=== PATIENT | female | born 1955 | race Caucasian/White ===

== ENCOUNTER → 2017-02-21 | Outpatient (CLI) | payer MEDICARE, OTHER | END | disposition home or self-care (01) | LOC: LABWHC1 10:42 | PROVIDERS: ATTEND Psychiatry & Neurology Neurology | DX: G40.109 Localization-related (focal) (partial) symptomatic epilepsy and epileptic syndromes with simple partial seizures, not intractable, without status epilepticus (principal) | CPT/HCPCS: 36415; 80201 ==

== ENCOUNTER → 2023-01-21 | Outpatient (CLI) | payer MEDICARE, OTHER ==
[2023-01-21 11:23] LABS: Basophils # (A) 0.03 X 10*3/uL (0.00-0.10); Basophils % (A) 0.4 %; Eosinophils % (A) 2.7 %; HCT 38.1 % (37.2-46.3); HGB 12.1 d/dL (12.0-15.0); Lymphocytes # (A) 2.29 X 10*3/uL (0.90-5.00); MCH 26.6 pg (27.0-32.0); MCHC 31.8 d/dL (32.0-37.0); MCV 83.7 FL (80.0-97.0); Mean Platelet Volume 9.8 FL (9.5-12.2); Monocytes # (A) 0.66 X 10*3/uL (0.20-1.00); Monocytes % (A) 8.9 %; NRBC Per 100 WBC 0 X 10*3/uL (0.00-0.01); Neutrophils # (A) 4.15 X 10*3/uL (1.80-7.70); Neutrophils % (A) 56.2 %; Platelet Count 244 X 10*3/uL (140-440); RBC 4.55 X 10*6/uL (4.10-5.20); RDW 14.2 % (11.5-14.5); WBC 7.39 X 10*3/uL (4.50-10.00)
[2023-01-21 16:12] LABS: ALT 16 U/L (8-44); AST 18 U/L (13-35); Albumin/Globulin Ratio 1.54 Ratio (1.60-3.17); Alkaline Phosphatase 135 U/L (41-126); BUN/Creat Ratio 5.88 Ratio (12.00-20.00); Blood Urea Nitrogen 4.7 mg/dL (9.0-27.0); Calcium 9.4 mg/dL (8.7-10.3); Chloride 109 mmol/L (96-109); Chol/HDL Ratio 2.91 Ratio; Globulin 2.6 d/dL (1.6-3.3); Glucose 94 mg/dL (70-110); LDL Cholesterol,Calculated 95.1 mg/dL (0.0-131.0); Potassium 4.3 mmol/L (3.5-5.5); Sodium 142 mmol/L (135-145); Total Bilirubin 0.3 mg/dL (0.3-1.2); Total Protein 6.6 d/dL (6.2-8.2)
== END | disposition home or self-care (01) ==
LOC: LABWHC1 07:25
PROVIDERS: ATTEND Family Medicine
DX: Z11.59 Encounter for screening for other viral diseases (principal); E70.0 Classical phenylketonuria; F32.4 Major depressive disorder, single episode, in partial remission; F41.1 Generalized anxiety disorder
CPT/HCPCS: 36415; 80053; 80061; 84443; 85025; 86803

== ENCOUNTER 2023-08-04 14:41 | Observation (INO) | payer MEDICARE, OTHER ==
[2023-08-04] MEDS ORDERED: SODIUM CHLORIDE 0.9% 500 ML 500 ML IV STA (15:17)
[2023-08-04] MEDS ORDERED: SODIUM CHLORIDE 0.9% 1,000 ML IV STA (15:17)
[2023-08-04] MEDS ORDERED: KETOROLAC 15 MG/ML 1 ML VIAL IVP STA (15:17)
[2023-08-04 15:56] LABS: Basophils % (A) 0 %; Eosinophils % (A) 0 %; HCT 35.9 % (34.0-46.0); HGB 11.4 gm/dL (11.4-16.0); Hypochromasia Slight; Lymphocytes # (A) 0.6 k/uL (1.0-4.8); Lymphocytes % (A) 6 %; MCH 25.8 pg (25.0-35.0); MCHC 31.8 g/dL (31.0-37.0); MCV 81.2 fL (80.0-100.0); Mean Platelet Volume 7.8; Monocytes # (A) 0.4 k/uL (0-1.0); Monocytes % (A) 3 %; Neutrophils # (A) 9.8 k/uL (1.3-7.7); Neutrophils % (A) 90 %; Platelet Count 195 k/uL (150-450); RBC 4.42 m/uL (3.80-5.40); RDW 13.7 % (11.5-15.5); WBC 10.9 k/uL (3.8-10.6)
[2023-08-04 16:10] LABS: ALT 18 U/L (4-34); AST 27 U/L (14-36); African American GFR (CKD) >90 (>60 ml/min/1.73 sqM); Albumin 3.5 g/dL (3.5-5.0); Alkaline Phosphatase 143 U/L (38-126); Amylase 66 U/L (30-110); Anion Gap 11 mmol/L; Blood Urea Nitrogen 6 mg/dL (7-17); Calcium 8.9 mg/dL (8.4-10.2); Carbon Dioxide 19 mmol/L (22-30); Chloride 110 mmol/L (98-107); Glucose 128 mg/dL (74-99); Lipase 46 U/L (23-300); Non-African American GFR(CKD) >90 (>60 ml/min/1.73 sqM); Sodium 140 mmol/L (137-145); Total Bilirubin 0.3 mg/dL (0.2-1.3); Total Protein 6.4 g/dL (6.3-8.2)
[2023-08-04 16:22] LABS: Bacteria,Urine Moderate /hpf; Mucus,Urine Rare /hpf; RBC,Urine 12 /hpf (0-5); WBC,Urine 2 /hpf (0-5)
[2023-08-04 16:30] LABS: Appearance,Urine Slightly Cloudy (Clear); Color,Urine Light Yellow; PH, Urine 7.5 (5.0-8.0)
[2023-08-04 16:31] LABS: Bilirubin,Urine Negative (Negative); Blood,Urine Trace (Negative); Glucose,Urine (UA) Negative (Negative); Ketones,Urine Negative (Negative); Leukocyte Esterase,Urine Negative (Negative); Nitrite,Urine Negative (Negative); Protein,Urine Negative (Negative); Urobilinogen,Urine <2.0 mg/dL (<2.0)
[2023-08-04] MEDS ORDERED: SODIUM CHLORIDE 0.9% 500 ML IV STA (17:15)
--- NOTE | 2023-08-04 17:17 | ED ---
General Adult HPI - General Chief complaint: Urogenital Stated complaint: UTI Time Seen by Provider: 08/04/23 15:11 Source: patient, EMS Mode of arrival: EMS Limitations: no limitations - History of Present Illness Initial comments: This 67-year-old female presents with the home health care worker with complaint of weakness. She apparently was weak to the point today that she was unable to ambulate. She is chronically confused due to dementia so all history is obtained from the home health care worker. The patient apparently has 24 7 coverage at the home watching over her. She did not have any actual known fever. She is denying any urinary symptoms. She apparently was complaining of some lower back pain at one time. The home health care worker said that she was too weak in both her legs today to stand or walk. No other complaints or mo difying factors. - Related Data Home Medications Medication Instructions Recorded Confirmed Unable To Assess [Unable to Assess] 08/27/15 08/27/15 Allergies Allergy/AdvReac Type Severity Reaction Status Date / Time No Known Allergies Allergy Verified 08/04/23 14:57 Review of Systems ROS Statement: Those systems with pertinent positive or pertinent negative responses have been documented in the HPI. ROS Other: All systems not noted in ROS Statement are negative. 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 VITAL SIGNS: Heart rate, blood pressure, respiratory rate reviewed as recorded in nurse's notes. EYES: Pupils are round and reactive. Extraocular movements are intact. No conjunctival / lid redness or swelling. ENT: No external evidence of injury, swelling, or ecchymosis. Airway is patent. Throat is clear. NECK: Nontender. No swelling or evidence of injury. No subcutaneous emphysema. Trachea is midline. No thyroid mass. HEART: Regular rate and rhythm. Good peripheral pulses. LUNGS/CHEST: Breath sounds clear and equal bilaterally. No rales, rhonchi, or wheezes. No ecchymosis, subcutaneous emphysema, or tenderness. ABDOMEN: Abdomen soft without tenderness. No palpable masses or organomegaly. No peritoneal signs. No abdominal wall swelling or ecchymosis. EXTREMITIES: No extremity tenderness. Normal muscle tone and function. No thoracolumbar tenderness. NEUROLOGIC: Sensation is grossly intact. Cranial nerve exam reveals face is symmetrical, tongue is midline, speech is clear. No localized neurologic abnormalities. SKIN: No abrasions or ecchymosis is noted. No induration or masses noted. PSYCHIATRIC: Alert and pleasant, happy. Appears demented. Limitations: no limitations Course Vital Signs 08/04/23 08/04/23 14:48 16:00 Temperature 98.5 F Pulse Rate 101 H 107 H Respiratory 18 18 Rate Blood Pressure 146/87 144/88 O2 Sat by Pulse 98 97 Oximetry Medical Decision Making - Medical Decision Making The patient was seen and examined. All diagnostics are reviewed. The laboratory does show leukocytosis. She also has decrease in her CO2 and slight elevation in her chloride. The urinalysis does show some bacteria and slight hematuria consistent with possible urinary tract infection. IV fluids are given. IV Rocephin also was given. It is felt as though she benefit from admission to the hospital with continued IV fluids and IV antibiotics for her weakness and likely urinary tract infection. The patient and home health care worker agreeable with this plan. Case will be discussed with internal medicine shortly. Was pt. sent in by a medical professional or institution ([facility], [employer], urgent care, hospital, or shelter...) When possible be specific @ -[No] Did you speak to anyone other than the patient for history (EMS, parent, family, police, friend...)? What history was obtained from this source @ -History is obtained from the home health care worker. Did you review nursing and triage notes (agree or disagree)? Why? @ -[I reviewed and agree with nursing and triage notes] Were old charts reviewed (outside hosp., previous admission, EMS record, old EKG, old radiological studies, urgent care reports/EKG's, shelter records)? Report findings @ -Old records were reviewed. Differential Diagnosis (chest pain, altered mental status, abdominal pain women, abdominal pain men, vaginal bleeding, weakness, fever, dyspnea, syncope, headache, dizziness, GI bleed, back pain, seizure, CVA, palpatations, mental health, musculoskeletal)? @ -Weakness, urinary tract infection, sepsis, dehydration. EKG interpreted by me (3pts min.). @ -None done X-rays interpreted by me (1pt min.). @ -[None done] CT interpreted by me (1pt min.). @ -[None done] U/S interpreted by me (1pt. min.). @ -[None done] What testing was considered but not performed or refused? (CT, X-rays, U/S, labs)? Why? @ -[None] What meds were considered but not given or refused? Why? @ -[None] Did you discuss the management of the patient with other professionals (professionals i.e. , PA, [employer], lab, RT, psych nurse, medical social worker, academic administrator, teacher, police officer, community case manager)? Give summary @ -Case is discussed with internal medicine and they're agreeable with admission. Was smoking cessation discussed for >3mins.? @ -[No] Was critical care preformed (if so, how long)? @ -[No] Were there social determinants of health that impacted care today? How? (Homelessness, low income, unemployed, alcoholism, drug addiction, tr ansportation, low edu. Level, literacy, decrease access to med. care, long term, rehab)? @ -Social determinants to include patient being demented and unable to give any significant history herself. Was there de-escalation of care discussed even if they declined (Discuss DNR or withdrawal of care, Hospice)? DNR status @ -[No] What co-morbidities impacted this encounter? (DM, HTN, Smoking, COPD, CAD, Cancer, CVA, ARF, Chemo, Hep., AIDS, mental health diagnosis, sleep apnea, morbid obesity)? @ -Dementia Was patient admitted / discharged? Hospital course, mention meds given and route, prescriptions, significant lab abnormalities, going to OR and other pertinent info. @ -Admitted Undiagnosed new problem with uncertain prognosis? @ -[No] Drug Therapy requiring intensive monitoring for toxicity (Heparin, Nitro, Insulin, Cardizem)? @ -[No] Were any procedures done? @ -[No] Diagnosis/symptom? @ -Weakness, urinary tract infection, dehydration Acute, or Chronic, or Acute on Chronic? @ -Acute Uncomplicated (without systemic symptoms) or Complicated (systemic symptoms)? @ -Complicated Side effects of treatment? @ -[No] Exacerbation, Progression, or Severe Exacerbation? @ -[No] Poses a threat to life or bodily function? How? (Chest pain, [place], [place], pneumonia, PE, COPD, DKA, ARF, appy, cholecystitis, CVA, Diverticulitis, Homicidal, Suicidal, threat to staff... and all critical care pts) @ -[No] - Lab Data Result diagrams: 08/04/23 15:31 08/04/23 15:31 Lab Results 08/04/23 08/04/23 08/04/23 Range/Units 15:31 15:31 15:31 WBC 10.9 H (3.8-10.6) k/uL RBC 4.42 (3.80-5.40) m/uL Hgb 11.4 (11.4-16.0) gm/dL Hct 35.9 (34.0-46.0) % MCV 81.2 (80.0-100.0) fL MCH 25.8 (25.0-35.0) pg MCHC 31.8 (31.0-37.0) g/dL RDW 13.7 (11.5-15.5) % Plt Count 195 (150-450) k/uL MPV 7.8 Neutrophils % 90 % Lymphocytes % 6 % Monocytes % 3 % Eosinophils % 0 % Basophils % 0 % Neutrophils # 9.8 H (1.3-7.7) k/uL Lymphocytes # 0.6 L (1.0-4.8) k/uL Monocytes # 0.4 (0-1.0) k/uL Eosinophils # 0.0 (0-0.7) k/uL Basophils # 0.0 (0-0.2) k/uL Hypochromasia Slight Sodium 140 (137-145) mmol/L Potassium 4.0 (3.5-5.1) mmol/L Chloride 110 H (98-107) mmol/L Carbon Dioxide 19 L (22-30) mmol/L Anion Gap 11 mmol/L BUN 6 L (7-17) mg/dL Creatinine 0.65 (0.52-1.04) mg/dL Est GFR (CKD-EPI)AfAm >90 (>60 ml/min/1.73 sqM) Est GFR (CKD-EPI)NonAf >90 (>60 ml/min/1.73 sqM) Glucose 128 H (74-99) mg/dL Plasma Lactic Acid Timothy (0.7-2.0) mmol/L Calcium 8.9 (8.4-10.2) mg/dL Total Bilirubin 0.3 (0.2-1.3) mg/dL AST 27 (14-36) U/L ALT 18 (4-34) U/L Alkaline Phosphatase 143 H (38-126) U/L Total Protein 6.4 (6.3-8.2) g/dL Albumin 3.5 (3.5-5.0) g/dL Amylase 66 (30-110) U/L Lipase 46 (23-300) U/L Urine Color Light Yellow Urine Appearance Slightly Cloudy H (Clear) Urine pH 7.5 (5.0-8.0) Ur Specific [place] 1.010 (1.001-1.035) Urine Protein Negative (Negative) Urine Glucose (UA) Negative (Negative) Urine Ketones Negative (Negative) Urine Blood Trace (Negative) Urine Nitrite Negative (Negative) Urine Bilirubin Negative (Negative) Urine Urobilinogen <2.0 (<2.0) mg/dL Ur Leukocyte Esterase Negative (Negative) Urine RBC 12 H (0-5) /hpf Urine WBC 2 (0-5) /hpf Urine Bacteria Moderate H (None) /hpf Urine Mucus Rare H (None) /hpf 08/04/23 Range/Units 15:31 WBC (3.8-10.6) k/uL RBC (3.80-5.40) m/uL Hgb (11.4-16.0) gm/dL Hct (34.0-46.0) % MCV (80.0-100.0) fL MCH (25.0-35.0) pg MCHC (31.0-37.0) g/dL RDW (11.5-15.5) % Plt Count (150-450) k/uL MPV Neutrophils % % Lymphocytes % % Monocytes % % Eosinophils % % Basophils % % Neutrophils # (1.3-7.7) k/uL Lymphocytes # (1.0-4.8) k/uL Monocytes # (0-1.0) k/uL Eosinophils # (0-0.7) k/uL Basophils # (0-0.2) k/uL Hypochromasia Sodium (137-145) mmol/L Potassium (3.5-5.1) mmol/L Chloride (98-107) mmol/L Carbon Dioxide (22-30) mmol/L Anion Gap mmol/L BUN (7-17) mg/dL Creatinine (0.52-1.04) mg/dL Est GFR (CKD-EPI)AfAm (>60 ml/min/1.73 sqM) Est GFR (CKD-EPI)NonAf (>60 ml/min/1.73 sqM) Glucose (74-99) mg/dL Plasma Lactic Acid Timothy 2.0 (0.7-2.0) mmol/L Calcium (8.4-10.2) mg/dL Total Bilirubin (0.2-1.3) mg/dL AST (14-36) U/L ALT (4-34) U/L Alkaline Phosphatase (38-126) U/L Total Protein (6.3-8.2) g/dL Albumin (3.5-5.0) g/dL Amylase (30-110) U/L Lipase (23-300) U/L Urine Color Urine Appearance (Clear) Urine pH (5.0-8.0) Ur Specific [place] (1.001-1.035) Urine Protein (Negative) Urine Glucose (UA) (Negative) Urine Ketones (Negative) Urine Blood (Negative) Urine Nitrite (Negative) Urine Bilirubin (Negative) Urine Urobilinogen (<2.0) mg/dL Ur Leukocyte Esterase (Negative) Urine RBC (0-5) /hpf Urine WBC (0-5) /hpf Urine Bacteria (None) /hpf Urine Mucus (None) /hpf Disposition Clinical Impression: Urinary tract infection, Weakness, Dehydration, Dementia, Back pain Disposition: ADMITTED IP TO THIS HOSP Condition: Fair Is patient prescribed a controlled substance at d/c from ED?: No Referrals: Etta Joyce MD [Primary Care Provider] - 1-2 days Time of Disposition: 17:17 Decision Date: 08/04/23 Decision Time: 17:17
[2023-08-04] MEDS ORDERED: ONDANSETRON 4 MG/2 ML VIAL IVP PRN (17:23)
[2023-08-04] MEDS ORDERED: ACETAMINOPHEN TAB 325 MG TAB PO PRN (17:23)
[2023-08-05] MEDS: LATANOPROST 0.005% OPHTH DROPS 2.5 ML BTL BOTH EYES SCH ×2 (01:03→21:12)
[2023-08-05] MEDS: TOPIRAMATE 25 MG TAB PO SCH ×3 (01:03→21:12)
[2023-08-05] MEDS: ENOXAPARIN 40 MG/0.4 ML SYRINGE SQ SCH (08:50)
[2023-08-05] MEDS: ASCORBIC ACID 500 MG TAB PO SCH (08:50)
[2023-08-05] MEDS: PANTOPRAZOLE 40 MG TABLET PO SCH (08:50)
[2023-08-05] MEDS: ZINC SULFATE 220 MG CAP PO SCH (08:50)
[2023-08-05] MEDS: SERTRALINE 100 MG TAB PO SCH (08:50)
[2023-08-05 11:31] LABS: BUN/Creat Ratio 7.33 Ratio (12.00-20.00); Blood Urea Nitrogen 4.4 mg/dL (9.0-27.0); Calcium 8.7 mg/dL (8.7-10.3); Carbon Dioxide 18.2 mmol/L (21.6-31.8); Chloride 113 mmol/L (96-109); Glucose 92 mg/dL (70-110); Potassium 3.8 mmol/L (3.5-5.5); Sodium 142 mmol/L (135-145)
[2023-08-05 12:03] VITALS: BMI 20.5
[2023-08-05] MEDS: CHOLECALCIFEROL 125 MCG (5000 IU) TABLET PO SCH (13:05)
--- NOTE | 2023-08-05 22:03 | P.HPIM ---
History of Present Illness H&P Date: 08/05/23 Chief Complaint: Generalized weakness Patient is a 67-year-old female with a past medical history of dementia was brought to the hospital due to complaints of generalized weakness. Patient has been so weak that she is unable to ambulate as per her caregiver. Patient does have underlying dementia and unable to provide good history. Denies any complaints of fever or chills. Denies any chest pain or shortness of breath. Denies any dysuria or hematuria. Patient is also complaining of lower back pain. Laboratory data showed WBC 10.9 hemoglobin 11.4 and platelets 195 Sodium 140 potassium 4.0 chloride 110 bicarb is 19 and BUN 6 and creatinine 0.65 and blood sugar is 128 liver exams are not elevated. 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, seasonal allergies, cataracts History of Any Multi-Drug Resistant Organisms: None Reported Past Surgical History: Hysterectomy Past Anesthesia/Blood Transfusion Reactions: No Reported Reaction Past Psychological History: Unable to Obtain Smoking Status: Never smoker Past Alcohol Use History: None Reported Past Drug Use History: None Reported Medications and Allergies Home Medications Medication Instructions Recorded Confirmed Type Ascorbic Acid [Vitamin C] 500 mg PO DAILY 08/04/23 08/04/23 History Cholecalciferol (Vitamin D3) 1,250 mcg PO DAILY 08/04/23 08/04/23 History [Vitamin D3] Latanoprost [Latanoprost 0.005%] 1 drop BOTH EYES HS 08/04/23 08/04/23 History Sertraline [Zoloft] 200 mg PO DAILY 08/04/23 08/04/23 History Topiramate [Topamax] 50 mg PO BID 08/04/23 08/04/23 History Zinc Gluconate [Zinc] 50 mg PO DAILY 08/04/23 08/04/23 History Allergies Allergy/AdvReac Type Severity Reaction Status Date / Time protein Allergy see comment Uncoded 08/04/23 18:05 Physical Exam Vitals: Vital Signs Temp Pulse Pulse Resp BP BP Pulse Ox 08/05/23 07:20 99.0 F 86 18 128/75 95 08/05/23 02:00 98.8 F 85 17 130/79 95 08/04/23 20:00 16 08/04/23 18:46 97.9 F 104 H 19 137/83 97 08/04/23 18:00 102 H 18 147/84 97 08/04/23 16:00 107 H 18 144/88 97 08/04/23 14:48 98.5 F 101 H 18 146/87 98 Intake and Output 08/04/23 08/05/23 08/05/23 22:59 06:59 14:59 Output Total 950 Balance -950 Output: Urine 950 Other: Voiding Method Diaper External Catheter # Voids 1 # Bowel Movements 1 Weight 50.802 kg 50.802 kg PHYSICAL EXAMINATION: Patient is lying in the bed comfortably, no acute distress, awake alert and oriented x 1-2.. HEENT: Normocephalic. Neck is supple. Pupils reactive. Nostrils clear. Oral cavity is moist. Neck reveals no JVD, carotid bruits, or thyromegaly. CHEST EXAMINATION: Trachea is central. Symmetrical expansion. Lung paige clear to auscultation and percussion. CARDIAC: Normal S1, S2 with no gallops. No murmurs ABDOMEN: Soft. Bowel sounds present. Nontender. No organomegaly. No abdominal bruits. Extremities: reveal no edema. No clubbing or cyanosis Neurologically awake, alert, oriented x1-2 dementia. Able to move all extremities. No gross focal deficits noted. Skin: No rash or skin lesions. Psychiatric: Coperative. Could not be assessed completely. Musculoskeletal: No joint swelling or deformity. Normal range of motion. . Results CBC & Chem 7: 08/04/23 15:31 08/05/23 06:15 Labs: Abnormal Lab Results - Last 24 Hours (Table) 08/04/23 08/04/23 08/04/23 Range/Units 15:31 15:31 15:31 WBC 10.9 H (3.8-10.6) k/uL Neutrophils # 9.8 H (1.3-7.7) k/uL Lymphocytes # 0.6 L (1.0-4.8) k/uL Chloride 110 H (98-107) mmol/L Carbon Dioxide 19 L (22-30) mmol/L BUN 6 L (7-17) mg/dL BUN/Creatinine Ratio (12.00-20.00) Ratio Glucose 128 H (74-99) mg/dL Alkaline Phosphatase 143 H (38-126) U/L Urine Appearance Slightly Cloudy H (Clear) Urine RBC 12 H (0-5) /hpf Urine Bacteria Moderate H (None) /hpf Urine Mucus Rare H (None) /hpf 08/05/23 Range/Units 06:15 WBC (3.8-10.6) k/uL Neutrophils # (1.3-7.7) k/uL Lymphocytes # (1.0-4.8) k/uL Chloride 113 H (98-107) mmol/L Carbon Dioxide 18.2 L (22-30) mmol/L BUN 4.4 L (7-17) mg/dL BUN/Creatinine Ratio 7.33 L (12.00-20.00) Ratio Glucose (74-99) mg/dL Alkaline Phosphatase (38-126) U/L Urine Appearance (Clear) Urine RBC (0-5) /hpf Urine Bacteria (None) /hpf Urine Mucus (None) /hpf Thrombosis Risk Factor Assmnt - DVT/VTE Prophylaxis DVT/VTE Prophylaxis: Pharmacologic Prophylaxis ordered - Choose All That Apply Any of the Below Risk Factors Present?: Yes Other Risk Factors: Yes Each Risk Factor Represents 2 Points: Age 61-74 years Other congenital or acquired thrombophilia - If yes, enter type in comment: No Thrombosis Risk Factor Assessment Total Risk Factor Score: 2 Thrombosis Risk Factor Assessment Level: Low Risk Assessment and Plan Assessment: Generalized weakness and unable to walk by herself. Possible urinary tract infection Dementia DVT prophylaxis with Lovenox subcu and GI prophylax with PPI Plan: Patient was given IV hydration and will be continued on antibiotics ceftriaxone. Follow-up culture reports. Encourage oral intake and PT OT will be consulted. Continue to follow closely. Follow-up labs tomorrow.
[2023-08-06 08:40] LABS: Basophils # (A) 0.02 X 10*3/uL (0.00-0.10); Basophils % (A) 0.3 %; Eosinophils # (A) 0.33 X 10*3/uL (0.04-0.35); HCT 33.1 % (37.2-46.3); HGB 10.3 g/dL (12.0-15.0); Lymphocytes # (A) 2.49 X 10*3/uL (0.90-5.00); Lymphocytes % (A) 37.6 %; MCH 24.7 pg (27.0-32.0); MCHC 31.1 g/dL (32.0-37.0); MCV 79.4 FL (80.0-97.0); Mean Platelet Volume 10.6 FL (9.5-12.2); Monocytes # (A) 0.56 X 10*3/uL (0.20-1.00); Monocytes % (A) 8.4 %; NRBC Per 100 WBC 0 X 10*3/uL (0.00-0.01); Neutrophils % (A) 48.2 %; Platelet Count 219 X 10*3/uL (140-440); RBC 4.17 X 10*6/uL (4.10-5.20); RDW 13.8 % (11.5-14.5); WBC 6.63 X 10*3/uL (4.50-10.00)
[2023-08-06 09:10] LABS: BUN/Creat Ratio 6.33 Ratio (12.00-20.00); Blood Urea Nitrogen 3.8 mg/dL (9.0-27.0); Calcium 9.1 mg/dL (8.7-10.3); Carbon Dioxide 18.7 mmol/L (21.6-31.8); Chloride 111 mmol/L (96-109); Glucose 84 mg/dL (70-110); Sodium 140 mmol/L (135-145)
[2023-08-06] MEDS: ENOXAPARIN 40 MG/0.4 ML SYRINGE SQ SCH (09:49)
[2023-08-06] MEDS: ZINC SULFATE 220 MG CAP PO SCH (09:50)
[2023-08-06] MEDS: PANTOPRAZOLE 40 MG TABLET PO SCH (09:50)
[2023-08-06] MEDS: ASCORBIC ACID 500 MG TAB PO SCH (09:50)
[2023-08-06] MEDS: CHOLECALCIFEROL 125 MCG (5000 IU) TABLET PO SCH (09:50)
[2023-08-06] MEDS: TOPIRAMATE 25 MG TAB PO SCH ×2 (09:50→22:43)
[2023-08-06] MEDS: SERTRALINE 100 MG TAB PO SCH (09:50)
--- NOTE | 2023-08-06 11:21 | XR ---
EXAMINATION TYPE: XR chest 1V DATE OF EXAM: 08/06/2023 COMPARISON: 08/27/2015 HISTORY: Cough TECHNIQUE: Single frontal view of the chest is obtained. FINDINGS: There is no focal air space opacity, pleural effusion, or pneumothorax seen. The cardiac silhouette size is within normal limits. The osseous structures are intact. Emphysematous changes w ith diffuse osteopenia. IMPRESSION: No acute process.
[2023-08-06] MEDS: LATANOPROST 0.005% OPHTH DROPS 2.5 ML BTL BOTH EYES SCH (22:43)
[2023-08-07 08:23] VITALS: RESP 16
[2023-08-07] MEDS: ASCORBIC ACID 500 MG TAB PO SCH (09:40)
[2023-08-07] MEDS: ENOXAPARIN 40 MG/0.4 ML SYRINGE SQ SCH (09:40)
[2023-08-07] MEDS: TOPIRAMATE 25 MG TAB PO SCH (09:40)
[2023-08-07] MEDS: ZINC SULFATE 220 MG CAP PO SCH (09:40)
[2023-08-07] MEDS: CHOLECALCIFEROL 125 MCG (5000 IU) TABLET PO SCH (09:40)
[2023-08-07] MEDS: PANTOPRAZOLE 40 MG TABLET PO SCH (09:40)
[2023-08-07] MEDS: SERTRALINE 100 MG TAB PO SCH (09:40)
[2023-08-07 11:02] LABS: Basophils # (A) 0.05 X 10*3/uL (0.00-0.10); Basophils % (A) 0.9 %; Eosinophils # (A) 0.28 X 10*3/uL (0.04-0.35); Eosinophils % (A) 5.2 %; HCT 33.7 % (37.2-46.3); HGB 10.5 g/dL (12.0-15.0); Lymphocytes % (A) 33.3 %; MCH 24.5 pg (27.0-32.0); MCHC 31.2 g/dL (32.0-37.0); MCV 78.7 FL (80.0-97.0); Mean Platelet Volume 10.2 FL (9.5-12.2); Monocytes # (A) 0.48 X 10*3/uL (0.20-1.00); Monocytes % (A) 8.9 %; NRBC Per 100 WBC 0 X 10*3/uL (0.00-0.01); Neutrophils # (A) 2.77 X 10*3/uL (1.80-7.70); Neutrophils % (A) 51.3 %; Platelet Count 225 X 10*3/uL (140-440); RBC 4.28 X 10*6/uL (4.10-5.20); RDW 13.8 % (11.5-14.5)
[2023-08-07 11:27] LABS: BUN/Creat Ratio <4.38 Ratio (12.00-20.00); Blood Urea Nitrogen <3.5 mg/dL (9.0-27.0); Calcium 9.2 mg/dL (8.7-10.3); Carbon Dioxide 20.9 mmol/L (21.6-31.8); Chloride 110 mmol/L (96-109); Glucose 90 mg/dL (70-110); Potassium 3.9 mmol/L (3.5-5.5); Sodium 142 mmol/L (135-145)
[2023-08-07 13:26] VITALS: BP 118/73; PULSE 84
[2023-08-07 13:51] VITALS: TEMP 98
== END 2023-08-07 15:15 | disposition home health service (06) ==
LOC: EC 14:41 → EEVIPCON 14:41 → 5NMEDONC 17:23
PROVIDERS: ADMIT Hospitalist; ATTEND Hospitalist
DX: R53.1 Weakness (principal); E86.0 Dehydration; D72.829 Elevated white blood cell count, unspecified; F03.90 Unspecified dementia, unspecified severity, without behavioral disturbance, psychotic disturbance, mood disturbance, and anxiety; M54.50 Low back pain, unspecified; H26.9 Unspecified cataract; Z79.899 Other long term (current) drug therapy; J30.2 Other seasonal allergic rhinitis; Z88.8 Allergy status to other drugs, medicaments and biological substances; Z90.710 Acquired absence of both cervix and uterus; Z86.39 Personal history of other endocrine, nutritional and metabolic disease
CPT/HCPCS: 96361 ×3; 96366 ×2; 96372 ×3; 96375 ×2; 96365; 99285; 36415; 97162; 97166; 82747; 80053; 80048 ×3; 84443; 82607; 82150; 83605; 83690; 85025 ×3; 81001; 87040; 87086; 84145; 71045; G0378 ×4; J2405; J1650 ×3; J0696 ×4; J1885

== ENCOUNTER 2023-10-05 09:19 | Emergency (ER) | payer MEDICARE, OTHER ==
[2023-10-05 09:43] VITALS: TEMP 97.6
--- NOTE | 2023-10-05 09:54 | ED ---
General Adult HPI - General Chief complaint: Overdose Stated complaint: Took Wrong Meds Time Seen by Provider: 10/05/23 09:29 Source: patient, RN notes reviewed, Caregiver Mode of arrival: ambulatory Limitations: no limitations - History of Present Illness Initial comments: This is a 68 year old female who presents to the emergency department for taking the wrong medications. Patient lives in a shelter and caregiver is at bedside. States that they were getting her morning medication ready, and she accidentally took her friend's medication. This consisted of Abilify 10mg, Buspirone 5mg, Celebrex 200mg, Keppra 750mg, Simvastatin 20mg, and Spironolactone 25mg. The patient currently feels fine and the caregiver states that she has been acting normally. She called her PCP's office and first spoke with the medical examiner, who advised she bring her to the emergency department due to concerns with the Abilify and Buspirone. However, after they arrived here, they received a call from her PCP saying to just monitor her for signs of lethargy. - Related Data Home Medications Medication Instructions Recorded Confirmed Ascorbic Acid [Vitamin C] 500 mg PO DAILY 08/04/23 08/04/23 Cholecalciferol (Vitamin D3) 1,250 mcg PO DAILY 08/04/23 08/04/23 [Vitamin D3 (1250 Mcg = 50,000 Iu)] Latanoprost [Latanoprost 0.005%] 1 drop BOTH EYES HS 08/04/23 08/04/23 Sertraline [Zoloft] 200 mg PO DAILY 08/04/23 08/04/23 Topiramate [Topamax] 50 mg PO BID 08/04/23 08/04/23 Zinc Gluconate [Zinc] 50 mg PO DAILY 08/04/23 08/04/23 Previous Rx's Medication Instructions Recorded Cyanocobalamin [Vitamin B-12] 500 mcg PO DAILY 30 Days #30 tablet 08/07/23 cefUROXime axetiL [Ceftin] 500 mg PO BID 2 Days #4 tab 08/07/23 Allergies Allergy/AdvReac Type Severity Reaction Status Date / Time protein Allergy see comment Uncoded 08/04/23 18:05 Review of Systems ROS Statement: Those systems with pertinent positive or pertinent negative responses have been documented in the HPI. ROS Other: All systems not noted in ROS Statement are negative. 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 Absent: respiratory distress, wheezes, rales, rhonchi, stridor Cardiovascular Exam: Present: regular rate, normal rhythm, normal heart sounds. Absent: systolic murmur, diastolic murmur, rubs, gallop, clicks Neurological exam: Present: alert, oriented X3, CN II-XII intact Psychiatric exam: Present: normal affect, normal mood Skin exam: Present: warm, dry, intact, normal color. Absent: rash Course Vital Signs 10/05/23 10/05/23 10/05/23 09:22 10:27 11:30 Temperature 97.6 F Pulse Rate 103 H 88 84 Respiratory 18 18 20 Rate Blood Pressure 157/82 137/77 144/65 O2 Sat by Pulse 98 98 98 Oximetry Medical Decision Making - Medical Decision Making This is a 68 year old female who presents to the emergency department for taking the wrong medication. Was pt. sent in by a medical professional or institution? @ -No Did you speak to anyone other than the patient for history? @ -Her caregiver provided the majority of the information. Did you review nursing and triage notes? @ -Yes, and I agree, it is accurate with regards to the patient's symptoms. Were old charts reviewed? @ -No Differential Diagnosis? @ -Not applicable EKG interpreted by me (3pts min.)? @ -Not obtained X-rays interpreted by me (1pt min.)? @ -Not obtained CT interpreted by me (1pt min.)? @ -Not obtained U/S interpreted by me (1pt. min.)? @ -Not obtained What testing was considered but not performed? (CT, X-rays, U/S, labs)? Why? @ -None What meds were considered but not given? Why? @ -None Did you discuss the management of the patient with other professionals? @ -Nursing staff spoke with poison control, who advised that she did not consume toxic levels and she can be monitored for signs of lethargy. Did you reconcile home meds? @ -No Was smoking cessation discussed for >3mins.? @ -No Was critical care preformed (if so, how long)? @ -No Were there social determinants of health that impacted care today? How? (Homelessness, low income, unemployed, alcoholism, drug addiction, transportation, low edu. Level, literacy, decrease access to med. care, usp, rehab)? @ -No Was there de-escalation of care discussed even if they declined? (Discuss DNR or withdrawal of care, Hospice)? @ -No What co-morbidities impacted this encounter? (DM, HTN, Smoking, COPD, CAD, Cancer, CVA, Hep., AIDS, mental health diagnosis, sleep apnea, morbid obesity)? @ -None Was patient admitted / discharged? @ -Discharged. Patient was asymptomatic on arrival with no complaints. Nursing staff contacted poison control who advised that she consumed nontoxic doses and no testing is indicated. She can be monitored for a couple of hours to ensure she remains asymptomatic and vital signs are WNL. She was monitored in the emergency department for a couple of hours and continued to remain asymptomatic with normal vital signs. Patient discharged home with caregiver. They will continue to monitor her at the home for any concerning symptoms and return to the emergency department with any changes. Undiagnosed new problem with uncertain prognosis? @ -None Drug Therapy requiring intensive monitoring for toxicity (Heparin, Nitro, Insulin, Cardizem)? @ -None Were any procedures done? @ -None Diagnosis/symptom? @ -Medication error Acute, or Chronic, or Acute on Chronic? @ -Acute Uncomplicated (without systemic symptoms) or Complicated (systemic symptoms)? @ -Uncomplicated Side effects of treatment? @ -None Exacerbation, Progression, or Severe Exacerbation] @ -Not applicable Poses a threat to life or bodily function? @ -No Return precautions reviewed in depth, the patient is instructed to return to the emergency department with any new, worsening, or concerning symptoms. Patient's caregiver verbalized understanding. This case was discussed in detail with the attending ED physician, Dr. Miramontes. Presentation, findings, and treatment plan discussed in detail as well. Disposition Clinical Impression: Medication error Disposition: HOME SELF-CARE Additional Instructions: Return to the emergency department with any new, worsening, or concerning symptoms. Follow up with your primary care provider in 1-2 days. Is patient prescribed a controlled substance at d/c from ED?: No Referrals: Etta Joyce MD [Primary Care Provider] - 1-2 days Time of Disposition: 11:30
[2023-10-05 11:45] VITALS: BP 144/65; PULSE 84; RESP 20
== END 2023-10-05 11:39 | disposition home or self-care (01) ==
LOC: EC 09:19
DX: T43.591A Poisoning by other antipsychotics and neuroleptics, accidental (unintentional), initial encounter (principal); T39.391A Poisoning by other nonsteroidal anti-inflammatory drugs [NSAID], accidental (unintentional), initial encounter; T46.6X1A Poisoning by antihyperlipidemic and antiarteriosclerotic drugs, accidental (unintentional), initial encounter; T50.0X1A Poisoning by mineralocorticoids and their antagonists, accidental (unintentional), initial encounter; Z91.018 Allergy to other foods
CPT/HCPCS: 99283

== ENCOUNTER → 2023-10-13 | Outpatient (CLI) | payer MEDICARE, OTHER ==
[2023-10-13 15:32] LABS: Basophils # (A) 0.03 X 10*3/uL (0.00-0.10); Basophils % (A) 0.5 %; Eosinophils # (A) 0.13 X 10*3/uL (0.04-0.35); Eosinophils % (A) 2.1 %; HCT 35.7 % (37.2-46.3); HGB 11.3 g/dL (12.0-15.0); Lymphocytes # (A) 1.92 X 10*3/uL (0.90-5.00); Lymphocytes % (A) 31.3 %; MCH 25.3 pg (27.0-32.0); MCHC 31.7 g/dL (32.0-37.0); Mean Platelet Volume 10.8 FL (9.5-12.2); Monocytes # (A) 0.58 X 10*3/uL (0.20-1.00); Monocytes % (A) 9.4 %; NRBC Per 100 WBC 0 X 10*3/uL (0.00-0.01); Neutrophils # (A) 3.45 X 10*3/uL (1.80-7.70); Neutrophils % (A) 56.2 %; Platelet Count 243 X 10*3/uL (140-440); RBC 4.46 X 10*6/uL (4.10-5.20); RDW 17.4 % (11.5-14.5); WBC 6.14 X 10*3/uL (4.50-10.00)
[2023-10-13 17:03] LABS: ALT 13 U/L (8-44); AST 22 U/L (13-35); Albumin 3.7 g/dL (3.8-4.9); Albumin/Globulin Ratio 1.37 Ratio (1.60-3.17); Alkaline Phosphatase 151 U/L (41-126); BUN/Creat Ratio 7.33 Ratio (12.00-20.00); Blood Urea Nitrogen 6.6 mg/dL (9.0-27.0); Calcium 9.4 mg/dL (8.7-10.3); Carbon Dioxide 24.3 mmol/L (21.6-31.8); Chloride 109 mmol/L (96-109); Globulin 2.7 g/dL (1.6-3.3); Glucose 94 mg/dL (70-110); Potassium 3.7 mmol/L (3.5-5.5); Sodium 143 mmol/L (135-145); Total Bilirubin 0.3 mg/dL (0.3-1.2); Total Protein 6.4 g/dL (6.2-8.2)
== END | disposition home or self-care (01) ==
LOC: LABWHC1 08:51
PROVIDERS: ATTEND Family Medicine
DX: E70.0 Classical phenylketonuria (principal); R41.0 Disorientation, unspecified
CPT/HCPCS: 36415; 80053; 82607; 82746; 85025

== ENCOUNTER → 2023-10-16 | Outpatient (CLI) | payer MEDICARE, OTHER | END | disposition home or self-care (01) | LOC: LABWHC1 09:37 | PROVIDERS: ATTEND Family Medicine | DX: E70.0 Classical phenylketonuria (principal); R41.0 Disorientation, unspecified | CPT/HCPCS: 36415 ==

== ENCOUNTER → 2023-11-18 | Outpatient (CLI) | payer MEDICARE, OTHER ==
[2023-11-18 15:31] LABS: ALT 15 U/L (8-44); AST 30 U/L (13-35); Albumin 3.8 g/dL (3.8-4.9); Albumin/Globulin Ratio 1.31 Ratio (1.60-3.17); Alkaline Phosphatase 149 U/L (41-126); BUN/Creat Ratio 10.86 Ratio (12.00-20.00); Blood Urea Nitrogen 7.6 mg/dL (9.0-27.0); Calcium 9.1 mg/dL (8.7-10.3); Carbon Dioxide 20.2 mmol/L (21.6-31.8); Chloride 102 mmol/L (96-109); Globulin 2.9 g/dL (1.6-3.3); Glucose 99 mg/dL (70-110); Potassium 3.5 mmol/L (3.5-5.5); Sodium 134 mmol/L (135-145); Total Bilirubin 0.5 mg/dL (0.3-1.2); Total Protein 6.7 g/dL (6.2-8.2)
[2023-11-18 15:58] LABS: Basophils # (A) 0.05 X 10*3/uL (0.00-0.10); Basophils % (A) 0.5 %; Eosinophils # (A) 0.15 X 10*3/uL (0.04-0.35); Eosinophils % (A) 1.4 %; HCT 36.5 % (37.2-46.3); HGB 11.3 g/dL (12.0-15.0); Lymphocytes # (A) 2.43 X 10*3/uL (0.90-5.00); Lymphocytes % (A) 22.2 %; MCH 25.9 pg (27.0-32.0); MCV 83.5 FL (80.0-97.0); Mean Platelet Volume 10.8 FL (9.5-12.2); Monocytes # (A) 1.03 X 10*3/uL (0.20-1.00); Monocytes % (A) 9.4 %; NRBC Per 100 WBC 0 X 10*3/uL (0.00-0.01); Neutrophils # (A) 7.23 X 10*3/uL (1.80-7.70); Neutrophils % (A) 65.8 %; Platelet Count 240 X 10*3/uL (140-440); RBC 4.37 X 10*6/uL (4.10-5.20); RDW 15.5 % (11.5-14.5); WBC 10.97 X 10*3/uL (4.50-10.00)
[2023-11-18 17:05] LABS: Appearance,Urine Clear (Clear); Bilirubin,Urine Negative (Negative); Blood,Urine Negative (Negative); Color,Urine Yellow (Yellow); Ketones,Urine Negative (Negative); Nitrite,Urine Negative (Negative); PH, Urine 6.5; Specific Gravity,Urine 1.003 (1.001-1.030); Urobilinogen,Urine 0.2 E.U./DL
== END | disposition home or self-care (01) ==
LOC: LABWHC1 11:44
PROVIDERS: ATTEND Family Medicine
DX: E70.0 Classical phenylketonuria (principal); R41.82 Altered mental status, unspecified
CPT/HCPCS: 36415; 80053; 81003; 85025